=== PATIENT | female | born 1945 | race Caucasian/White ===

== ENCOUNTER 2018-06-20 14:37 | Inpatient (IN) | payer MEDICARE ==
[~2018-06-20] VITALS: Ht 157.4 cm; Wt 61.7 kg
--- NOTE | ~2018-06-20 | CON ---
[place], [place] REPORT OF CONSULTATION NAME: ELIJAH FARMER UNIT #: [id number] ROOM: 309 DOCTOR: PHD DOLORES ANKUSH BIRTHDATE: [birth year] DOS: 06/22/2018 HISTORY OF PRESENT ILLNESS: The patient is a 73-year-old female referred by Dr. Holt for competency evaluation. At the present time, the patient is on the [facility] at [facility]. She is a resident at the [facility] at [place] where she had been having increasingly disruptive behaviors. The patient stated that she is and has 2 children. 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 She is a former smoker and denied alcohol and illegal drug use. PAST MEDICAL HISTORY: Anemia due to blood loss, anxiety, atrial fibrillation, benign pancreatic tumor, bipolar disorder, chronic kidney disease stage 4, dementia, diastolic congestive heart failure, diverticulosis, fibromyalgia, gastric ulcer, GI bleed, hyperlipidemia, hyperparathyroidism, hypertension, hypothyroidism, IBS, lumbar degenerative disk disease, lumbar spondylosis, microscopic hematuria, migraine, pacemaker, pancreatitis, parathyroid adenoma, peptic ulcer disease, sick sinus syndrome, syncope and collapse. MEDICATIONS: Synthroid, Protonix, Remeron, Carafate, Renagel, Zofran, Dulcolax, Geodon, Tylenol, Klonopin, Ativan. The patient was sitting comfortably, in no apparent distress. She was oriented to person and month. She could name the current president. She gave the year as 1944. Eye contact was intense. Affect was flat and mood was depressed. She denied suicidal and homicidal ideation, plan, and intent. Speech was slow and mumbled. Thought process was goal directed. Thought content appeared to be within normal limits. Insight and judgment appeared compromised. She was not able to discuss her medical conditions or any medications, she takes. She stated that she feels confused and would like her daughter to help her make medical decisions. The patient earned a 5/30 on the [place] Cognitive Assessment with an intact score being 26. She demonstrated an ease of confusion throughout the screening test. Mini trails B, Necker cube copy and clock drawing were all impaired. She could not draw the numbers or hands on the clock. She was able to perform a minimum of 5 digits forward, but could not provide any digits backwards. She made several errors of omission on a test of vigilance and could not complete any serial 7 subtractions. With respect to language abilities, she made small errors of omission on a test of sentence repetition and was not able to understand the directions to verbal fluency. She mistakenly called a rhinoceros a hippo on a test of naming. Verbal abstraction was noteworthy for significant confusion. On a test of memory, the patient was able to recall 2/5 words on the first trial and 0-5 words on the second immediate recall trial. She was not able to recall any words spontaneously after a short delay neither cues did not improve her performance category, neither category cues nor multiple choice improve her performance. Overall, the patient demonstrated significant cognitive deficits in the areas of executive functioning, memory, attention and language. Contributing factors likely include her cardiovascular issues, kidney failure and may also include medication effects and UTI, her emotional status. In my opinion, the patient does not appear competent to make her medical decisions at this time and her POA should be utilized for decision making. [place], [place] REPORT OF CONSULTATION NAME: ELIJAH FARMER UNIT #: [id number] ROOM: 309 DOCTOR: DOLORES, PHD ANKUSH BIRTHDATE: [birth year] DIAGNOSES: Unspecified neurocognitive disorder; bipolar disorder, unspecified. 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 Thank you very much for this consult. Sofia Conrad, PhD CM:CONSTR:REPORT OF CONSULTATION 1450 06/23/18 0845 interface
--- NOTE | ~2018-06-20 | PR ---
[place], [place] PROGRESS NOTE NAME: ELIJAH FARMER UNIT #: [id number] ROOM: 309 DOCTOR: ASHLEY CROWLEY MD BIRTHDATE: [birth year] DOS: 06/24/2018 INTERVAL NOTE CHIEF COMPLAINT: "Oh, I am okay honey, I don't need anything." SUMMARY OF THE VISIT: The patient was interviewed as she was in her room. She had just finished getting dressed. She engaged readily in conversation. She seemed fairly pleasant and bright and reported to me that she slept well and ate well. Nurses report that she got 5 hours of sleep, which is in lyle contrast to what she had received the last several nights. She did not appear somnolent or sedate in any manner. MENTAL STATUS: She is alert and oriented to person, place, approximate to time. Mood does seem to be more euthymic. Affect is more appropriate. There is no emmanuel or hypomania. There are no gross psychotic symptoms. She does have some mild gaps in memory. PLAN: I will maintain her current psychotropic regimen and monitor over the next 24 hours as not to overshoot the leatha. Her anxiety level and depression both seemed to be dissipating. We will engage in individual and cheng milieu activity, returning then to the least restrictive environment when psychiatrically stable. ASHLEY CROWLEY MD CM:PNTRANS 0840 [id number] ASHLEY CROWLEY MD 06/24/18 1502 interface
--- NOTE | ~2018-06-20 | PR ---
[place], [place] PROGRESS NOTE NAME: ELIJAH FARMER UNIT #: [id number] ROOM: 309 DOCTOR: ASHLEY CROWLEY MD BIRTHDATE: [birth year] DOS: 06/25/2018 CHIEF COMPLAINT: "I don't feel well, but I slept okay." SUMMARY OF THE VISIT: The patient was interviewed as she was sitting in the dining room. She reported that she did not feel well, but could not totally verbalize what was wrong. She did request for some cold water. She did also report that her anxiety is less since I have made the medication changes and she is sleeping better, both of these are positive notes. MENTAL STATUS: She is alert and oriented with significant time gaps. Mood does seem to be trending towards euthymia and the anxiety is much less. There is no hypomania or emmanuel. There are no auditory or visual hallucinations. No delusions, no paranoia. Memory has gaps in short term events. PLAN: I will go ahead and maintain her Ativan throughout the day twice a day, but increase the nighttime Klonopin from 1.5-2 mg at bedtime. Continue to engage in individual and cheng milieu activity, returning then to the least restrictive environment when psychiatrically stable. ASHLEY CROWLEY MD CM:PNTRANS 6 2 ASHLEY CROWLEY MD 06/25/18901 interface
--- NOTE | ~2018-06-20 | WRIGHTHP ---
[place], [place] PATIENT HISTORY AND PHYSICAL EXAM NAME: ELIJAH FARMER UNIT #: [id number] ROOM: 309 DOCTOR: ASHLEY CROWLEY MD BIRTHDATE: [birth year] DOS: 06/21/2018 INITIAL PSYCHIATRIC EVALUATION CHIEF COMPLAINT: "Oh, good morning doctor." SUMMARY OF VISIT: This is a 73-year-old white female who presents from the [facility] [place]. The patient is known to me from previous psychiatric admissions to [facility] in [place], [place]. The patient apparently had been increasingly disruptive at the [facility]. She has been very depressed, not attending to her ADLs, not eating or sleeping well. She has also been yelling repeatedly and disrupting the cheng milieu. She has been throwing herself from her wheelchair and has not responded to any support and redirection. Attempts to adjust her medications while at the assisted living facility have been unsuccessful. Given the severity of her symptoms, it was felt that an inpatient stabilization was warranted. Complicating matters is that the patient has significant medical issues including progressive renal failure. Most recently, the patient had been on hospice, but hospice did eventually remove itself from her case and she has been receiving standard medical care at the assisted living facility. PAST MEDICAL HISTORY: Significant for anemia secondary to blood loss, atrial fibrillation, a benign pancreatic tumor, chronic kidney disease stage 4, congestive heart failure, diverticulosis, fibromyalgia, peptic ulcer disease, history of GI bleed, hyperlipidemia, hyperparathyroidism, hypertension, hypothyroidism, irritable bowel, lumbar degenerative disk disease, migraine headaches, pacemaker insertion, pancreatitis, sick sinus syndrome, syncope and nicotine abuse. SOCIAL HISTORY: The patient is a former smoker, but is not currently a smoker. She does not use smokeless tobacco products. She does not drink alcohol nor does she use illicit drugs. FAMILY HISTORY: Quite significant for multiple individuals in the family suffering from both depression and panic disorder. There is a possible history of bipolar disorder as well STRENGTHS: Supportive family, good verbal skills. WEAKNESSES: Significant history of mental health issues and poor coping skills. MENTAL STATUS: The patient is alert and oriented with time gaps. Mood does seem to be overwhelmingly depressed. Affect is flat, blunted, and constricted. She endorses multiple neurovegetative symptoms. I did not see the presence of emmanuel or hypomania. I did not see the presence of any psychotic symptoms. Short-term memory has gaps. DIAGNOSES: Major depression, recurrent and panic disorder. PLAN: I will go ahead and discontinue her Risperdal as this seems to be more of [place], [place] PATIENT HISTORY AND PHYSICAL EXAM NAME: ELIJAH FARMER UNIT #: [id number] ROOM: 309 DOCTOR: ASHLEY CROWLEY MD BIRTHDATE: [birth year] a depressive issue at the present time and I think that some of her yelling out is anxiety related. I will go ahead and start Remeron 15 mg at bedtime. I will consider utilizing a short-acting benzodiazepine were possibly a long-acting benzodiazepine like clonazepam, but we will monitor first, continue to engage in individual and cheng milieu activity, returning to the least restrictive environment when psychiatrically stable. ASHLEY CROWLEY MD CM:HISPHYS:PATIENT HISTORY AND PHYSICAL EXAMINATION 6 2 ASHLEY CROWLEY MD 06/21/18932 interface
--- NOTE | ~2018-06-20 | PR ---
[place], [place] PROGRESS NOTE NAME: ELIJAH FARMER UNIT #: [id number] ROOM: 309 DOCTOR: ASHLEY CROWLEY MD BIRTHDATE: [birth year] DOS: 06/23/2018 INTERVAL NOTE CHIEF COMPLAINT: "Oh, you are so sweet." SUMMARY OF THE VISIT: The patient was interviewed as she was finishing her breakfast in the dining area. She reported to me that she did sleep slightly better and she did eat her breakfast. She does still note anxiety that is frequently flaring during the day and is related to the medical issues that have been going on and are ongoing. She is awake and not sedated or somnolent in anyway. MENTAL STATUS: She is alert and oriented to person, place, not necessarily time. Mood does seem to be trending towards euthymia with significant though anxious overtones. There is no emmanuel, hypomania or psychosis. Memory does have some gaps. PLAN: I am going to utilize a mixture of Ativan and Klonopin, bottom loading her at nighttime with the Klonopin to aid sleep and also sustain a blood level that can help prevent the panic attacks and anxiety from coming. I will use short acting Ativan during the day to prevent the peaks and anxiety that are occurring. She has been on both of these in the past per family's report and I will try to use now a combination to see if we can fine tune control of her anxiety. We will engage in individual and cheng milieu activity, returning then to the least restrictive environment when psychiatrically stable. ASHLEY CROWLEY MD CM:PNTRANS 0844 1559 ASHLEY CROWLEY MD 06/23/18 1558 interface
--- NOTE | ~2018-06-20 | EKG ---
[place], [place] ELECTROCARDIOGRAM REPORT NAME: ELIJAH FARMER UNIT #: [id number] ROOM: 309 DOCTOR: NIMESH DRAFT REPORT BIRTHDATE: [address] 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
--- NOTE | ~2018-06-20 | PR ---
[place], [place] PROGRESS NOTE NAME: ELIJAH FARMER UNIT #: [id number] ROOM: 309 DOCTOR: ASHLEY CROWLEY MD BIRTHDATE: [birth year] DOS: 06/22/2018 INTERVAL NOTE CHIEF COMPLAINT: "Honey, I am anxious, can I have something for it." SUMMARY OF THE VISIT: The patient was interviewed as she was sitting in a Jannette chair in the dining area, watching television. As I approached her, she appeared very fretful and anxious and openly stated she has been anxious all her life. She requested that I give her something for the anxiety. She did report that she slept well and had a good breakfast. Otherwise, she notes no other issues. MENTAL STATUS: She is alert and oriented to person, possibly place, not to time. Mood does seem to be more euthymic, but she is very anxious and fretful. There is no symptom suggestive of hypomania or emmanuel. There are no auditory or visual hallucinations. No delusions, no paranoia. Short-term memory has some mild gaps, otherwise she is intact. PLAN: I will go ahead and maintain her Remeron at 15 mg at bedtime. I will give her Ativan 0.5 mg p.o. now, as a short-acting benzo to give her some immediate relief and start her on Klonopin 0.5 mg in the morning and 1 mg at nighttime for a more sustained relief of her anxiety. I will have nursing reach out to family members to get a more accurate history as to what benzos or treatment she has received for her anxiety disorder to determine what will be the best approach. We will engage her in individual and cheng milieu activity, returning then to the least restrictive environment when psychiatrically stable. ASHLEY CROWLEY MD CM:PNTRANS 1002 1517 ASHLEY CROWLEY MD 06/22/18 1516 interface
[2018-06-20] MEDS ORDERED: PROTONIX IV40 MG PO (16:57)
[2018-06-20] MEDS ORDERED: Lasix80 MG PO (16:58)
[2018-06-20] MEDS ORDERED: RISPERIDONE OD0.5 MG PO (16:59)
[2018-06-20] MEDS ORDERED: Synthroid,Lev200 MCG PO (16:59)
[2018-06-20] MEDS ORDERED: SENOKOT8.6 MG PO (16:59)
[2018-06-20] MEDS ORDERED: CARAFATE1 G1 PO (17:00)
[2018-06-20] MEDS ORDERED: CARAFATE1 GM/10 ML PO (17:01)
[2018-06-20] MEDS ORDERED: MELATONIN 3 MG1 EACH PO (17:01)
[2018-06-20] MEDS ORDERED: ATIVAN1 MG PO ×2 (17:02→17:06)
[2018-06-20] MEDS ORDERED: Zofran4 MG SL (17:02)
[2018-06-20] MEDS ORDERED: MIRALAX17 GM PO (17:02)
[2018-06-20] MEDS ORDERED: CLARITIN10 MG PO (17:03)
[2018-06-20] MEDS ORDERED: TOPCARE WOMAN'S5 MG PO (17:05)
[2018-06-20] MEDS ORDERED: TYLENOL325 M1 PO (17:06)
[2018-06-20] MEDS ORDERED: RENVELA800 MG PO (17:07)
[2018-06-20] MEDS ORDERED: SODIUM BICARBO650 MG PO (17:08)
[2018-06-20] MEDS ORDERED: CLONIDINE HCL0.1 MG PO (17:10)
[2018-06-20 22:08] VITALS: BP 122/84
[2018-06-20 23:45] LABS: ALBUMIN 2.4 gm/dl (3.1-4.5); CREATININE 5.29 mg/dL (0.55-1.02); PHOSPHOROUS 5.3 mg/dL (2.5-4.9); POTASSIUM 3.7 mmol/L (3.5-5.1)
[2018-06-21 06:50] LABS: BASO # 0.1 10*3/uL (0.0-0.1); BASO % 0.7 % (0.0-1.0); EOS # 0.1 10*3/uL (0.0-0.4); HEMATOCRIT 33.1 % (37.0-47.0); HEMOGLOBIN 10.3 g/dl (12.0-16.0); LYMPH # 2.2 10*3/uL (1.3-4.4); LYMPH % 31.2 % (27.0-41.0); MEAN CELL VOLUME 91.7 fl (81.0-99.0); MEAN CORPUSCULAR HGB 28.5 pg (27.0-31.0); MEAN CORPUSCULAR HGB CONC 31.1 g/dl (33.0-37.0); MEAN PLATELET VOLUME 9.7 fl (9.6-12.3); MONO # 0.7 10*3/uL (0.1-1.0); MONO % 9.4 % (3.0-9.0); NEUT # 3.8 10*3/uL (2.3-7.9); NEUT % 54.7 % (47.0-73.0); PLATELET COUNT AUTOMATED 198 10*3/uL (130-400); RED BLOOD COUNT 3.61 10*6/uL (4.10-5.10); RED CELL DISTRI WIDTH 14.6 % (0-14.5); WHITE BLOOD COUNT 6.9 10*3/uL (4.8-10.8)
[2018-06-21 07:21] LABS: ALBUMIN 2.3 gm/dl (3.1-4.5); CREATININE 5.12 mg/dL (0.55-1.02); PHOSPHOROUS 5.9 mg/dL (2.5-4.9); POTASSIUM 3.9 mmol/L (3.5-5.1)
[2018-06-21 07:28] LABS: FREE T4 2.11 ng/dl (0.76-1.46); THYROID STIM HORMONE (HS) 0.042 uIU/ml (0.358-4.75)
[2018-06-21 07:40] VITALS: BP 148/90
[2018-06-21 08:20] LABS: VITAMIN D, 25-HYDROXY 35.9 ng/mL (30-100)
[2018-06-21 20:00] VITALS: BP 140/85
[2018-06-22 07:15] LABS: BASO # 0.1 10*3/uL (0.0-0.1); BASO % 0.7 % (0.0-1.0); EOS # 0.1 10*3/uL (0.0-0.4); EOS % 0.8 % (1.0-4.0); HEMATOCRIT 36.7 % (37.0-47.0); HEMOGLOBIN 11.4 g/dl (12.0-16.0); LYMPH # 1.4 10*3/uL (1.3-4.4); LYMPH % 16.6 % (27.0-41.0); MEAN CELL VOLUME 91.5 fl (81.0-99.0); MEAN CORPUSCULAR HGB 28.4 pg (27.0-31.0); MEAN CORPUSCULAR HGB CONC 31.1 g/dl (33.0-37.0); MEAN PLATELET VOLUME 9.2 fl (9.6-12.3); MONO # 0.7 10*3/uL (0.1-1.0); MONO % 7.7 % (3.0-9.0); NEUT # 6.2 10*3/uL (2.3-7.9); NEUT % 72.6 % (47.0-73.0); RED BLOOD COUNT 4.01 10*6/uL (4.10-5.10); RED CELL DISTRI WIDTH 14.6 % (0-14.5); WHITE BLOOD COUNT 8.5 10*3/uL (4.8-10.8)
[2018-06-22 07:18] LABS: PLATELET COUNT AUTOMATED 264 10*3/uL (130-400)
[2018-06-22 07:41] LABS: POTASSIUM 3.7 mmol/L (3.5-5.1)
[2018-06-22 07:42] LABS: CREATININE 5.16 mg/dL (0.55-1.02)
[2018-06-22 08:38] VITALS: BP 140/83
[2018-06-22 19:38] VITALS: BP 142/88
[2018-06-23 07:48] VITALS: BP 146/81
[2018-06-23 19:42] VITALS: BP 128/86; BP 152/94
[2018-06-24 07:03] LABS: CREATININE 5.22 mg/dL (0.55-1.02); POTASSIUM 3.9 mmol/L (3.5-5.1)
[2018-06-24 07:19] VITALS: BP 141/90
[2018-06-24 20:00] VITALS: BP 128/85
[2018-06-25 08:00] VITALS: BP 148/76
[2018-06-25] MEDS ORDERED: REMERON15 M2 PO (11:43)
[2018-06-25] MEDS ORDERED: KLONOPIN2 M1 PO (11:43)
[2018-06-25] MEDS ORDERED: ATIVAN0.5 MG PO (11:43)
== END 2018-06-25 11:52 | disposition short-term general hospital (02) | DRG 883 ==
LOC: 3N 14:37
PROVIDERS: Family Medicine; Internal Medicine; Psychiatry & Neurology Psychiatry
DX: F63.81 Intermittent explosive disorder (principal); N17.0 Acute kidney failure with tubular necrosis; E43 Unspecified severe protein-calorie malnutrition; F33.9 Major depressive disorder, recurrent, unspecified; N39.0 Urinary tract infection, site not specified; I50.30 Unspecified diastolic (congestive) heart failure; F03.91 Unspecified dementia, unspecified severity, with behavioral disturbance; I13.0 Hypertensive heart and chronic kidney disease with heart failure and stage 1 through stage 4 chronic kidney disease, or unspecified chronic kidney disease; N18.4 Chronic kidney disease, stage 4 (severe); F41.9 Anxiety disorder, unspecified; M51.36 Other intervertebral disc degeneration, lumbar region; M79.7 Fibromyalgia; K58.9 Irritable bowel syndrome, unspecified; I49.5 Sick sinus syndrome; R41.9 Unspecified symptoms and signs involving cognitive functions and awareness; D64.9 Anemia, unspecified; F41.0 Panic disorder [episodic paroxysmal anxiety]; I48.91 Unspecified atrial fibrillation; E21.3 Hyperparathyroidism, unspecified; E03.9 Hypothyroidism, unspecified; E78.5 Hyperlipidemia, unspecified; K27.9 Peptic ulcer, site unspecified, unspecified as acute or chronic, without hemorrhage or perforation; K57.90 Diverticulosis of intestine, part unspecified, without perforation or abscess without bleeding; G43.909 Migraine, unspecified, not intractable, without status migrainosus; R73.9 Hyperglycemia, unspecified; Z95.0 Presence of cardiac pacemaker; Z81.8 Family history of other mental and behavioral disorders; Z68.24 Body mass index [BMI] 24.0-24.9, adult; Z90.710 Acquired absence of both cervix and uterus; Z90.49 Acquired absence of other specified parts of digestive tract; Z87.891 Personal history of nicotine dependence; Z88.6 Allergy status to analgesic agent; Z88.8 Allergy status to other drugs, medicaments and biological substances; Z91.048 Other nonmedicinal substance allergy status; Z79.899 Other long term (current) drug therapy

== ENCOUNTER 2018-06-20 16:57 | Emergency (ER) | payer MEDICARE ==
[~2018-06-20] VITALS: Wt 62.6 kg
--- NOTE | ~2018-06-20 | EKG ---
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
[~2018-06-20 16:57] MED LIST: PROTONIX IV40 MG PO
[2018-06-20] MEDS ORDERED: Lasix80 MG PO (16:58)
[2018-06-20] MEDS ORDERED: Synthroid,Lev200 MCG PO (16:59)
[2018-06-20] MEDS ORDERED: RISPERIDONE OD0.5 MG PO (16:59)
[2018-06-20] MEDS ORDERED: SENOKOT8.6 MG PO (16:59)
[2018-06-20] MEDS ORDERED: CARAFATE1 G1 PO (17:00)
[2018-06-20] MEDS ORDERED: MELATONIN 3 MG1 EACH PO (17:01)
[2018-06-20] MEDS ORDERED: CARAFATE1 GM/10 ML PO (17:01)
[2018-06-20] MEDS ORDERED: MIRALAX17 GM PO (17:02)
[2018-06-20] MEDS ORDERED: ATIVAN1 MG PO ×2 (17:02→17:06)
[2018-06-20] MEDS ORDERED: Zofran4 MG SL (17:02)
[2018-06-20] MEDS ORDERED: CLARITIN10 MG PO (17:03)
[2018-06-20] MEDS ORDERED: TOPCARE WOMAN'S5 MG PO (17:05)
[2018-06-20] MEDS ORDERED: TYLENOL325 M1 PO (17:06)
[2018-06-20] MEDS ORDERED: RENVELA800 MG PO (17:07)
[2018-06-20] MEDS ORDERED: SODIUM BICARBO650 MG PO (17:08)
[2018-06-20] MEDS ORDERED: CLONIDINE HCL0.1 MG PO (17:10)
[2018-06-20 18:18] LABS: BASO # 0.1 10*3/uL (0.0-0.1); BASO % 0.6 % (0.0-1.0); EOS # 0.1 10*3/uL (0.0-0.4); HEMATOCRIT 32.4 % (37.0-47.0); HEMOGLOBIN 10.3 g/dl (12.0-16.0); LYMPH # 2.3 10*3/uL (1.3-4.4); LYMPH % 29.2 % (27.0-41.0); MEAN CELL VOLUME 90.8 fl (81.0-99.0); MEAN CORPUSCULAR HGB 28.9 pg (27.0-31.0); MEAN CORPUSCULAR HGB CONC 31.8 g/dl (33.0-37.0); MEAN PLATELET VOLUME 9.6 fl (9.6-12.3); MONO # 0.8 10*3/uL (0.1-1.0); MONO % 9.5 % (3.0-9.0); NEUT # 4.6 10*3/uL (2.3-7.9); NEUT % 57.7 % (47.0-73.0); PLATELET COUNT AUTOMATED 207 10*3/uL (130-400); RED BLOOD COUNT 3.57 10*6/uL (4.10-5.10); RED CELL DISTRI WIDTH 14.6 % (0-14.5)
[2018-06-20 18:34] LABS: ALBUMIN 2.4 gm/dl (3.1-4.5); ALKALINE PHOSPHATASE 62 U/L (45-117); BUN 54 mg/dl (7-24); CHLORIDE 100 mmol/L (98-107); CREATININE 5.13 mg/dL (0.55-1.02); LIPASE 65 U/L (73-393); POTASSIUM 4.2 mmol/L (3.5-5.1); SGOT/AST 12 IU/L (3-35); SGPT/ALT 15 U/L (12-78); SODIUM 136 mmol/L (136-145); TOTAL PROTEIN 6.3 gm/dL (6.4-8.2); TROPONIN I 0.019 ng/ml (<0.045)
[2018-06-20 18:36] LABS: VALPROIC ACID (DEPAKENE) < 3.0 ug/ml (50-100)
[2018-06-20 19:34] LABS: BILIRUBIN NEGATIVE (NEGATIVE); BLOOD 1+ (NEGATIVE); CLARITY TURBID (CLEAR); COLOR YELLOW (YELLOW); GLUCOSE NEGATIVE (NEGATIVE); KETONE NEGATIVE (NEGATIVE); PH 7.6 (5.0-9.0); SPECIFIC GRAVITY 1.006 (1.005-1.030)
[2018-06-20 19:35] LABS: LEUKO ESTERASE 3+ (NEGATIVE); NITRITE NEGATIVE (NEGATIVE); UROBILINOGEN 0.2 E.U./dl (0.2-1.0)
[2018-06-20 19:52] LABS: WBC TNTC wbc/hpf (0-5)
== END 2018-06-21 03:53 | disposition home health service (06) ==
LOC: ED 16:57
PROVIDERS: Emergency Medicine
DX: F31.9 Bipolar disorder, unspecified (principal); N39.0 Urinary tract infection, site not specified; F41.9 Anxiety disorder, unspecified; N18.6 End stage renal disease; Z91.041 Radiographic dye allergy status; Z88.6 Allergy status to analgesic agent; Z88.5 Allergy status to narcotic agent; Z88.8 Allergy status to other drugs, medicaments and biological substances; Z79.899 Other long term (current) drug therapy

== ENCOUNTER 2018-06-25 11:37 | Inpatient (IN) | payer MEDICARE ==
[~2018-06-25] VITALS: Ht 157.4 cm; Wt 61.7 kg
[~2018-06-25 11:37] MED LIST changes: +ATIVAN1 MG PO; +CARAFATE1 G1 PO; +CARAFATE1 GM/10 ML PO; +CLARITIN10 MG PO; +CLONIDINE HCL0.1 MG PO; +Lasix80 MG PO; +MELATONIN 3 MG1 EACH PO; +MIRALAX17 GM PO; +RENVELA800 MG PO; +RISPERIDONE OD0.5 MG PO; +SENOKOT8.6 MG PO; +SODIUM BICARBO650 MG PO; +Synthroid,Lev200 MCG PO; +TOPCARE WOMAN'S5 MG PO; +TYLENOL325 M1 PO; +Zofran4 MG SL
[2018-06-25] MEDS ORDERED: KLONOPIN2 M1 PO (11:43)
[2018-06-25] MEDS ORDERED: REMERON15 M2 PO (11:43)
[2018-06-25] MEDS ORDERED: ATIVAN0.5 MG PO (11:43)
[2018-06-25 12:00] VITALS: BP 154/96
[2018-06-25 14:31] LABS: CREATININE 5.15 mg/dL (0.55-1.02); POTASSIUM 4.5 mmol/L (3.5-5.1)
[2018-06-25 14:32] LABS: PHOSPHOROUS 5.8 mg/dL (2.5-4.9)
[2018-06-25 16:00] VITALS: BP 170/90
[2018-06-25 20:00] VITALS: BP 176/91
[2018-06-25 22:00] VITALS: BP 160/68
[2018-06-26] VITALS (8 sets, daily range): BP systolic 138–158; BP diastolic 69–91
[2018-06-26 06:39] LABS: BASO # 0.1 10*3/uL (0.0-0.1); BASO % 0.8 % (0.0-1.0); EOS # 0.1 10*3/uL (0.0-0.4); EOS % 1.3 % (1.0-4.0); HEMATOCRIT 42.7 % (37.0-47.0); HEMOGLOBIN 12.8 g/dl (12.0-16.0); LYMPH # 1.7 10*3/uL (1.3-4.4); LYMPH % 20.2 % (27.0-41.0); MEAN CELL VOLUME 91.4 fl (81.0-99.0); MEAN CORPUSCULAR HGB 27.4 pg (27.0-31.0); MEAN PLATELET VOLUME 9.2 fl (9.6-12.3); MONO # 0.8 10*3/uL (0.1-1.0); MONO % 9.3 % (3.0-9.0); NEUT # 5.6 10*3/uL (2.3-7.9); NEUT % 65.8 % (47.0-73.0); PLATELET COUNT AUTOMATED 313 10*3/uL (130-400); RED BLOOD COUNT 4.67 10*6/uL (4.10-5.10); RED CELL DISTRI WIDTH 14.6 % (0-14.5); WHITE BLOOD COUNT 8.5 10*3/uL (4.8-10.8)
[2018-06-26 06:57] LABS: CREATININE 5.15 mg/dL (0.55-1.02); POTASSIUM 4.1 mmol/L (3.5-5.1)
[2018-06-27] VITALS: BP 142/82
[2018-06-27 06:12] LABS: BASO # 0.1 10*3/uL (0.0-0.1); BASO % 0.6 % (0.0-1.0); EOS # 0.2 10*3/uL (0.0-0.4); EOS % 2.8 % (1.0-4.0); HEMATOCRIT 38.3 % (37.0-47.0); HEMOGLOBIN 11.5 g/dl (12.0-16.0); LYMPH # 1.9 10*3/uL (1.3-4.4); LYMPH % 23.4 % (27.0-41.0); MEAN CELL VOLUME 92.3 fl (81.0-99.0); MEAN CORPUSCULAR HGB 27.7 pg (27.0-31.0); MEAN PLATELET VOLUME 8.7 fl (9.6-12.3); MONO # 0.6 10*3/uL (0.1-1.0); NEUT # 5.1 10*3/uL (2.3-7.9); NEUT % 63.4 % (47.0-73.0); PLATELET COUNT AUTOMATED 293 10*3/uL (130-400); RED BLOOD COUNT 4.15 10*6/uL (4.10-5.10); RED CELL DISTRI WIDTH 14.4 % (0-14.5)
[2018-06-27 06:44] LABS: CREATININE 5.06 mg/dL (0.55-1.02); POTASSIUM 3.3 mmol/L (3.5-5.1)
[2018-06-27 08:00] VITALS: BP 136/78
[2018-06-27] MEDS ORDERED: DILTIAZEM 24HR120 MG PO (11:42)
[2018-06-27] MEDS ORDERED: ASPIRIN ADULT L81 M2 PO (11:42)
[2018-06-27 12:19] VITALS: BP 153/82
[2018-06-27] MEDS ORDERED: ATIVAN0.5 MG PO (15:01)
[2018-06-27] MEDS ORDERED: KLONOPIN2 M1 PO (15:01)
== END 2018-06-27 13:32 | disposition other institution (70) | DRG 308 ==
LOC: 5E 11:37
PROVIDERS: Internal Medicine; Student in an Organized Health Care Education/Training Program
DX: I48.91 Unspecified atrial fibrillation (principal); E43 Unspecified severe protein-calorie malnutrition; N17.0 Acute kidney failure with tubular necrosis; N18.4 Chronic kidney disease, stage 4 (severe); I50.32 Chronic diastolic (congestive) heart failure; N30.01 Acute cystitis with hematuria; F03.91 Unspecified dementia, unspecified severity, with behavioral disturbance; I13.0 Hypertensive heart and chronic kidney disease with heart failure and stage 1 through stage 4 chronic kidney disease, or unspecified chronic kidney disease; D64.9 Anemia, unspecified; R73.9 Hyperglycemia, unspecified; F63.81 Intermittent explosive disorder; F31.9 Bipolar disorder, unspecified; F41.9 Anxiety disorder, unspecified; M79.7 Fibromyalgia; Z66 Do not resuscitate; Z51.5 Encounter for palliative care; E78.5 Hyperlipidemia, unspecified; K57.90 Diverticulosis of intestine, part unspecified, without perforation or abscess without bleeding; M47.896 Other spondylosis, lumbar region; G43.909 Migraine, unspecified, not intractable, without status migrainosus; E21.3 Hyperparathyroidism, unspecified; E03.9 Hypothyroidism, unspecified; K58.9 Irritable bowel syndrome, unspecified; K27.9 Peptic ulcer, site unspecified, unspecified as acute or chronic, without hemorrhage or perforation; M51.36 Other intervertebral disc degeneration, lumbar region; Z68.24 Body mass index [BMI] 24.0-24.9, adult; Z95.0 Presence of cardiac pacemaker; Z90.49 Acquired absence of other specified parts of digestive tract; Z90.710 Acquired absence of both cervix and uterus; Z87.891 Personal history of nicotine dependence; Z88.6 Allergy status to analgesic agent; Z88.5 Allergy status to narcotic agent; Z88.8 Allergy status to other drugs, medicaments and biological substances; Z91.048 Other nonmedicinal substance allergy status; Z79.899 Other long term (current) drug therapy